=== PATIENT | female | born 1980 | race Caucasian/White ===

== ENCOUNTER 2018-12-01 01:06 | Outpatient (CLI) | payer OTHER, SELFPAY ==
[2018-12-01 12:17] LABS: ALT 37 U/L (12-78); AST 17 U/L (15-37); Alkaline Phosphatase 70 U/L (46-116); Anion Gap 8.7 mmol/L (3-11); BUN 17 mg/dL (7-18); Bilirubin, Total 0.4 mg/dL (0.2-1.0); CO2 30.3 mmol/L (21.0-32.0); CREATININE 0.82 mg/dL (0.55-1.02); Calcium 8.7 mg/dL (8.5-10.1); Chloride 99 mmol/L (98-107); Cholesterol 187 mg/dL (50-200); Glucose 125 mg/dL (70-100); HDL Cholesterol 32 mg/dL (40-60); LDL CHOLESTEROL 130 mg/dL (<100); Potassium 4.2 mmol/L (3.5-5.1); Sodium 138 mmol/L (136-145); TSH (W/Ref FT4) 0.17 uIU/mL (0.358-3.74); Total Protein 7.6 g/dL (6.4-8.2); Triglyceride 104 mg/dL (30-150)
[2018-12-01 12:27] LABS: Hemoglobin A1C 6.1 % (4.5-6.2)
[2018-12-01 12:34] LABS: FREE T4 1.43 ng/dL (0.76-1.46)
[2018-12-01 20:56] LABS: T3,Free 4.4 pg/ml (2.8-5.3)
[2018-12-02 11:29] LABS: Thyroglobulin Antibody 24 U/mL (<61)
[2018-12-02 16:03] LABS: Thyroglobulin Antibody <1.8 IU/mL (<4.0); Thyroglobulin Tumor Marker <0.1 ng/mL
== END 2018-12-01 01:26 ==
PROVIDERS: PCP Family Medicine; Visit Provider Family Medicine
DX: I10 Essential (primary) hypertension (principal); C73 Malignant neoplasm of thyroid gland; E11.9 Type 2 diabetes mellitus without complications; R03.0 Elevated blood-pressure reading, without diagnosis of hypertension; E03.9 Hypothyroidism, unspecified
CPT/HCPCS: 36415; 80053; 80061; 83721; 83036; 84432; 84439; 84443; 84481; 86800

== ENCOUNTER 2019-05-03 01:17 | Outpatient (CLI) | payer OTHER, SELFPAY ==
[2019-05-03 13:02] LABS: ALT 29 U/L (14-59); AST 13 U/L (15-37); Albumin 1.7 g/dL (3.4-5.0); Alkaline Phosphatase 63 U/L (46-116); Anion Gap 7.6 mmol/L (3-11); BUN 9 mg/dL (7-18); Bilirubin, Total 0.3 mg/dL (0.2-1.0); CO2 29.4 mmol/L (21.0-32.0); CREATININE 0.77 mg/dL (0.55-1.02); Calcium 8.2 mg/dL (8.5-10.1); Chloride 101 mmol/L (98-107); Glucose 104 mg/dL (70-100); Potassium 4.3 mmol/L (3.5-5.1); Sodium 138 mmol/L (136-145)
[2019-05-03 13:10] LABS: TSH 0.93 uIU/mL (0.36-3.74)
== END 2019-05-03 01:37 ==
PROVIDERS: Internal Medicine Endocrinology, Diabetes & Metabolism; PCP Family Medicine
DX: I10 Essential (primary) hypertension (principal); C73 Malignant neoplasm of thyroid gland
CPT/HCPCS: 36415; 80053; 84443

== ENCOUNTER 2020-01-12 16:08 | Outpatient (REF) | payer OTHER, SELFPAY | END 2020-01-12 16:28 | LOC: LBN 16:08 | PROVIDERS: PCP Family Medicine; Visit Provider Nurse Practitioner Family | DX: J02.9 Acute pharyngitis, unspecified (principal) | CPT/HCPCS: 87070 ==

== ENCOUNTER 2020-03-20 03:31 | Outpatient (CLI) | payer OTHER, SELFPAY ==
[2020-03-20 13:02] LABS: Hemoglobin A1C 5.6 % (3.8-5.6)
[2020-03-20 13:06] LABS: ALT 28 U/L (14-59); AST 15 U/L (15-37); Albumin 4.1 g/dL (3.4-5.0); Alkaline Phosphatase 56 U/L (46-116); Anion Gap 8.5 mmol/L (3-11); BUN 10 mg/dL (7-18); Bilirubin, Total 0.5 mg/dL (0.2-1.0); CO2 28.5 mmol/L (21.0-32.0); CREATININE 0.77 mg/dL (0.55-1.02); Calcium 8.5 mg/dL (8.5-10.1); Calculated LDL 120 mg/dL (<100); Chloride 99 mmol/L (98-107); Cholesterol 178 mg/dL (<200); Glucose 96 mg/dL (74-106); HDL Cholesterol 39 mg/dL (40-60); Sodium 136 mmol/L (136-145); Total Protein 7.1 g/dL (6.4-8.2); Triglyceride 95 mg/dL (<150)
[2020-03-20 14:29] LABS: FREE T4 1.54 ng/dL (0.76-1.46)
[2020-03-20 23:04] LABS: Thyroglobulin Antibody 26 U/mL (<=60)
[2020-03-21 11:29] LABS: Hepatitis C Ab w Rflx HCV PCR Negative (Negative)
== END 2020-03-20 03:51 ==
PROVIDERS: PCP Family Medicine; Visit Provider Family Medicine
DX: D64.9 Anemia, unspecified (principal); E03.9 Hypothyroidism, unspecified; I10 Essential (primary) hypertension; E11.9 Type 2 diabetes mellitus without complications; C73 Malignant neoplasm of thyroid gland; Z00.00 Encounter for general adult medical examination without abnormal findings
CPT/HCPCS: 36415; 80053; 80061; 86803; 83036; 84439; 84443; 86800

== ENCOUNTER 2020-04-15 00:46 | Outpatient (CLI) | payer OTHER, SELFPAY ==
--- NOTE | 2020-04-15 06:30 | DI.US_ITS ---
EXAM: US PELVIS TRANSVAGINAL CLINICAL HISTORY: ABNL UTERINE BLEEDING, Pelvic pain,N93.9,R10.2 TECHNIQUE: Ultrasound performed using standard protocol. COMPARISON: US OB US 2-3 TRIMESTER TRANSABD*P from 12/01/2013 FINDINGS: Pelvic ultrasound was performed transabdominally and transvaginally. Please see the accompanying chloé a sheet for measurements of the pelvic structures. Uterus is enlarged measuring 10.3 x 5.4 x 6.4 cm. There are multiple apparent uterine fibroids inclu ding a 5 cm in diameter right fundal pedunculated fibroid. The endometrial stripe is about 13 millim eters in thickness with a 9 millimeter vascular solid area internally, endometrial polyp versus mass. Submucosal fibroid not excluded. There is of 5 cm in diameter left ovarian simple cyst. Right ovary unremarkable in appearance. No free fluid identified in the cul-de-sac. IMPRESSION: Multiple uterine fibroids as described above. There is an apparent 9 millimeter in diameter solid endometrial mass versus submucosal fibroid. Scott tional evaluation with hystero sonography or hysteroscopy may be considered. DATA REPOSITORY:
== END 2020-04-15 01:06 ==
PROVIDERS: PCP Family Medicine; Visit Provider Nurse Practitioner Women's Health
DX: D25.9 Leiomyoma of uterus, unspecified (principal); R10.2 Pelvic and perineal pain; N93.9 Abnormal uterine and vaginal bleeding, unspecified
CPT/HCPCS: 76830; 76856

== ENCOUNTER 2020-05-31 02:11 | Outpatient (CLI) | payer OTHER, SELFPAY ==
[2020-05-31 13:43] LABS: HCT 38.4 % (36.0-46.0); HGB 12.9 g/dL (11.2-15.7); MCHC 33.6 % (32.0-36.0); MCV 86.3 fL (80-95); MPV 9.2 fL (8.0-11.0); Platelet Count 265 10^3/uL (130-400); RBC 4.45 10^6/uL (3.93-5.22); RDW 12.9 % (11.7-14.6); RDW-SD 40.3 fL
[2020-05-31 14:06] LABS: HCG Qual (Urine) Negative
== END 2020-05-31 02:31 ==
PROVIDERS: PCP Family Medicine; Visit Provider Obstetrics & Gynecology
DX: N93.9 Abnormal uterine and vaginal bleeding, unspecified (principal); Z01.818 Encounter for other preprocedural examination; Z01.812 Encounter for preprocedural laboratory examination
CPT/HCPCS: 36415; 85027; 86850; 86900; 86901; 81025

== ENCOUNTER 2020-05-31 07:53 | Outpatient (CLI) | payer OTHER, SELFPAY ==
[2020-06-02 10:48] LABS: COVID-19 RT-PCR Result NEGATIVE (Negative)
== END 2020-05-31 08:13 ==
PROVIDERS: PCP Family Medicine; Visit Provider Obstetrics & Gynecology
DX: Z11.59 Encounter for screening for other viral diseases (principal); Z01.818 Encounter for other preprocedural examination
CPT/HCPCS: U0003

== ENCOUNTER 2020-06-05 07:48 | Day surgery (SDC) | payer OTHER, SELFPAY ==
[2020-06-05 08:03] VITALS: BP 125/78; PULSE 86; RESP 18; TEMP 37; O2SAT 95
[2020-06-05] MEDS: Lactated Ringers 1,000 ML 125 ML IV (09:08)
--- NOTE | 2020-06-05 09:58 | ENDO_PTH ---
PATIENT: Nell Kaplan LOC: [facility] U#:[id number] AGE/SX: 39/F ROOM: RE06/05/[address]: Lyric Gilbert DO : 1980 BED: DIS: 06/05/2020 SPEC #: [id number] RECD: 06/05/20 12:36 STATUS: BLESSING REQ #: [id number] AGUSTIN: 06/05/20 09:[address]: Lyric Gilbert DEPT: Surgical Specimen RECD BY: Keena Michelle ENTERED: 06/05/20 12:37 SP TYPE: Endo OTHR DR: Nuria Butts MD, DC Tissues: 1 - ENDOCERVICAL BX/CURRETTE 2 - ENDOMETRIUM BX/CURRETTE Procedures: GROSS AND MICRO LEVEL 4 Comments: [id number]
--- NOTE | 2020-06-05 10:11 | W.PM.OP ---
Date of service: 06/05/20 Time of Service: 10:11 Operative Note Operative Note DATE OF PROCEDURE: 06/05/20 PRE-OP DIAGNOSIS: Abnormal Uterine bleeding POST-OP DIAGNOSIS: same PROCEDURE: Hysteroscopy dilation curettage SURGEON: Lyric Gilbert ANESTHESIA: MAC ESTIMATED BLOOD LOSS: 10 PATHOLOGY: other (1. Endocervical curettage 2. Endometrial curettage) COMPLICATIONS: None Patient was transported to: PACU Patient's condition: stable Indications: Ongoing abnormal uterine bleeding Findings: Enlarged uterus, sounded to 10 cm, significantly kash-flexed, normal endometrium Procedure Description: Patient is a 30-year-old female with known abnormal uterine bleeding. Previous pelvic ultrasound showed thickened endometrium. Taking the operating suite with an IV running where she is placed in dorsal supine position. Anesthesia administered via monitored anesthesia care. She is then placed in the modified dorsal lithotomy position in stirrups and prepped and draped in usual sterile fashion. Exam under anesthesia revealed a uterus that was somewhat bulky approximately 10 weeks size and anteroverted. At this point, speculum was placed into the vaginal vault. Single-tooth tenaculum used to grasp the anterior lip of the cervix. Cervical loss dilated to the point that a 5 mm hysteroscope could be passed with ease. With instillation of normal saline the endometrial cavity was inspected and found to be relatively smooth and regular. Endocervical and subsequent endometrial curettage was performed with scant tissue from each. This completed the procedure. Hysteroscope had been removed. Single-tooth tenaculum was removed from the anterior lip of the cervix. Tenaculum sites were hemostatic. Patient was returned to the dorsal supine position and awoke from anesthesia with ease. She was taken recovery room in stable condition.
[2020-06-05] MEDS: HYDROcodone 5/Acetaminophen 325 TAB PO (10:35)
[2020-06-05 10:45] VITALS: BP 129/66; PULSE 67; RESP 16; TEMP 36.2; O2SAT 100
== END 2020-06-05 11:10 | disposition home or self-care (01) ==
PROVIDERS: PCP Family Medicine; Visit Provider Obstetrics & Gynecology
PROC: 0UDB8ZZ Extraction of Endometrium, Via Natural or Artificial Opening Endoscopic (ICD-10-PCS; CPT 58558; principal; 2020-06-05 09:15)
DX: N93.8 Other specified abnormal uterine and vaginal bleeding (principal); I10 Essential (primary) hypertension
CPT/HCPCS: 58558; 81025; 88305; J0131; J1100; J1885; J2001; J2250; J2405

== ENCOUNTER 2020-11-06 17:00 | Outpatient (REF) | payer OTHER, SELFPAY ==
[2020-11-06 22:06] LABS: TSH (W/Ref FT4) 4.24 uIU/mL (0.36-3.74)
[2020-11-06 22:26] LABS: FREE T4 1.34 ng/dL (0.76-1.46)
== END 2020-11-06 17:01 | disposition home or self-care (01) ==
LOC: LBN 17:00
PROVIDERS: PCP Family Medicine; Visit Provider Family Medicine
DX: E03.9 Hypothyroidism, unspecified (principal)
CPT/HCPCS: 84439; 84443

== ENCOUNTER 2021-04-25 03:50 | Outpatient (CLI) | payer OTHER, SELFPAY ==
--- NOTE | 2021-04-25 14:26 | DI.MAMMO_ITS ---
Exam(s) MAMMO SCREENING EXAM: MAMMO SCREENING CLINICAL HISTORY: screening,BASELINE, Z12.39 TECHNIQUE: Mammograms were interpreted according to the usual protocol including computer analysis w [facility] CAD system, tomosynthesis and C-view imaging. COMPARISON: FINDINGS: Patient reportedly has a of left breast reduction and right breast reconstruction. There are asymmet mejia densities projected far posteriorly in the right breast laterally on the CC view, these may be re lated to prior surgical procedure. No prior films available for comparison. Additional evaluation w [facility] ultrasound requested to exclude mass in this area. No other areas of asymmetric density or mass identified. No clumped microcalcification of either breast. IMPRESSION: Right breast contains areas of asymmetric density with a vaguely masslike appearance posterolateral ly, these may be related to prior surgery but the possibility of a mass is not entirely excluded. Co rrelation with right breast ultrasound recommended. BI-RADS Category 0 - Assessment Incomplete: Need additional imaging evaluation Breast Density - Category B - Scattered areas of fibroglandular density
== END 2021-04-25 04:10 ==
PROVIDERS: PCP Family Medicine; Visit Provider Family Medicine
DX: Z12.31 Encounter for screening mammogram for malignant neoplasm of breast (principal); R92.8 Other abnormal and inconclusive findings on diagnostic imaging of breast
CPT/HCPCS: 77063; 77067

== ENCOUNTER 2021-05-08 09:26 | Outpatient (CLI) | payer OTHER, SELFPAY ==
[2021-05-08 13:03] LABS: ALT 26 U/L (14-59); AST 14 U/L (15-37); Albumin 4.5 g/dL (3.4-5.0); Alkaline Phosphatase 64 U/L (46-116); Anion Gap 12.6 mmol/L (3-11); BUN 12 mg/dL (7-18); Bilirubin, Total 0.3 mg/dL (0.2-1.0); CO2 26.4 mmol/L (21.0-32.0); CREATININE 0.9 mg/dL (0.55-1.02); Calcium 8.6 mg/dL (8.5-10.1); Chloride 102 mmol/L (98-107); Glucose 119 mg/dL (74-106); Potassium 4.3 mmol/L (3.5-5.1); Sodium 141 mmol/L (136-145); TSH (W/Ref FT4) 2.96 uIU/mL (0.36-3.74)
[2021-05-08 22:38] LABS: Thyroglobulin Antibody <15 U/mL (<=60)
== END 2021-05-08 09:27 | disposition home or self-care (01) ==
LOC: LOS 09:26
PROVIDERS: PCP Family Medicine; Referring Provider Family Medicine; Visit Provider Family Medicine
DX: E03.9 Hypothyroidism, unspecified; Z00.00 Encounter for general adult medical examination without abnormal findings; C73 Malignant neoplasm of thyroid gland
CPT/HCPCS: 36415; 80053; 84443; 86800

== ENCOUNTER 2021-08-07 23:07 | Outpatient (REF) | payer OTHER, SELFPAY ==
[2021-08-08 21:14] LABS: COVID-19 RT-PCR UVMMC Result Negative (Negative)
== END 2021-08-07 23:08 | disposition home or self-care (01) ==
LOC: LBN 23:07
PROVIDERS: PCP Family Medicine; Visit Provider Nurse Practitioner Family
DX: Z20.822 Contact with and (suspected) exposure to COVID-19 (principal)
CPT/HCPCS: U0003

== ENCOUNTER 2022-05-06 01:45 | Outpatient (CLI) | payer OTHER, SELFPAY ==
[2022-05-06 13:11] LABS: Anion Gap 7.2 mmol/L (3-11); BUN 11 mg/dL (7-18); CO2 30.8 mmol/L (21.0-32.0); CREATININE 0.8 mg/dL (0.55-1.02); Chloride 98 mmol/L (98-107); Estimated GFR 94.87 (mL/min/1.73m2); FREE T4 1.42 ng/dL (0.76-1.46); Glucose 117 mg/dL (74-106); Potassium 3.3 mmol/L (3.5-5.1); Sodium 136 mmol/L (136-145); TSH 2.72 uIU/mL (0.36-3.74)
[2022-05-07 11:42] LABS: Thyroglobulin Antibody <1.8 IU/mL (<1.8); Thyroglobulin Tumor Marker <0.1 ng/mL
== END 2022-05-06 01:46 | disposition home or self-care (01) ==
LOC: LOS 01:47
PROVIDERS: PCP Nurse Practitioner Family; Visit Provider Nurse Practitioner Family
DX: E03.9 Hypothyroidism, unspecified (principal); C73 Malignant neoplasm of thyroid gland
CPT/HCPCS: 36415; 80048; 84432; 84439; 84443; 86800

== ENCOUNTER 2022-05-19 12:41 | Outpatient (REF) | payer OTHER, SELFPAY ==
--- NOTE | 2022-05-19 10:00 | ENDOMET_PTH ---
PATIENT: Nell Kaplan LOC: [facility] U#:[id number] AGE/SX: 41/F ROOM: RE05/19/[address]: Lyric Gilbert DO : 1980 BED: DIS: 05/19/2022 SPEC #: [id number] RECD: 05/19/22 12:46 STATUS: BLESSING REQ #: [id number] AGUSTIN: 05/19/22 10:[address]: Lyric Gilbert DEPT: Surgical Specimen RECD BY: Keena Michelle ENTERED: 05/19/22 12:47 SP TYPE: Endomet OTHR DR: CINTHIA Trinh Tissues: 1 - ENDOMETRIUM BX/OMEGA Procedures: GROSS AND MICRO LEVEL 4 Comments: [id number]
== END 2022-05-19 12:42 | disposition home or self-care (01) ==
LOC: LBN 12:41
PROVIDERS: PCP Nurse Practitioner Family; Visit Provider Obstetrics & Gynecology
DX: N93.9 Abnormal uterine and vaginal bleeding, unspecified (principal)
CPT/HCPCS: 88305

== ENCOUNTER 2022-08-05 07:32 | Outpatient (CLI) | payer OTHER, SELFPAY ==
[2022-08-05 12:38] LABS: Anion Gap 8.4 mmol/L (3-11); BUN 12 mg/dL (7-18); CO2 28.6 mmol/L (21.0-32.0); CREATININE 0.8 mg/dL (0.55-1.02); Calcium 8.3 mg/dL (8.5-10.1); Chloride 99 mmol/L (98-107); Estimated GFR 94.87 (mL/min/1.73m2); Glucose 142 mg/dL (74-106); Potassium 3.8 mmol/L (3.5-5.1); Sodium 136 mmol/L (136-145); TSH 0.22 uIU/mL (0.36-3.74)
== END 2022-08-05 07:33 | disposition home or self-care (01) ==
LOC: LOS 07:32
PROVIDERS: PCP Nurse Practitioner Family; Referring Provider Nurse Practitioner Family; Visit Provider Nurse Practitioner Family
DX: I10 Essential (primary) hypertension; Z85.850 Personal history of malignant neoplasm of thyroid
CPT/HCPCS: 36415; 80048; 84439; 84443

== ENCOUNTER 2023-01-12 02:36 | Outpatient (CLI) | payer OTHER, SELFPAY ==
[2023-01-12 13:42] LABS: Abs Immature Grans 0.04 10^3/uL (0.0-0.06); Absolute Basophil Count 0.03 10^3/uL (0.0-0.2); Absolute Eosinophil Count 0.15 10^3/uL (0.0-0.7); Absolute Lymphocyte Count 2.22 10^3/uL (1.2-3.4); Absolute Monocyte Count 0.62 10^3/uL (0.1-0.8); Absolute Neutrophil Count 6.24 10^3/uL (1.2-6.7); Basophils % 0.3; Eosinophils % 1.6; HCT 36.5 % (36.0-46.0); HGB 11.6 g/dL (11.2-15.7); Immature Grans % 0.4; Lymphocytes % 23.9; MCH 24.8 pg (27.0-33.0); MCHC 31.8 % (32.0-36.0); MCV 78 fL (80-95); MPV 8.8 fL (8.0-11.0); Monocytes % 6.7; Neutrophils % 67.1; Platelet Count 304 10^3/uL (130-400); RBC 4.67 10^6/uL (3.93-5.22); RDW 14.4 % (11.7-14.6); RDW-SD 40.7 fL
[2023-01-12 14:32] LABS: Anion Gap 8.6 mmol/L (3-11); BUN 10 mg/dL (7-18); CO2 27.4 mmol/L (21.0-32.0); CREATININE 0.8 mg/dL (0.55-1.02); Calcium 8.7 mg/dL (8.5-10.1); Chloride 100 mmol/L (98-107); Estimated GFR 94.28 (mL/min/1.73m2); FREE T4 1.37 ng/dL (0.76-1.46); Glucose 104 mg/dL (74-106); Potassium 3.6 mmol/L (3.5-5.1); Sodium 136 mmol/L (136-145); TSH 0.24 uIU/mL (0.36-3.74)
[2023-01-12 14:34] LABS: Hemoglobin A1C 5.9 % (<5.7)
[2023-01-12 15:23] LABS: Vitamin D 25 Total 30.7 ng/mL (30-100)
[2023-01-13 20:39] LABS: Parathyroid Hormone,Intact 27 pg/mL (19-88)
== END 2023-01-12 02:37 | disposition home or self-care (01) ==
LOC: LBO 02:36
PROVIDERS: PCP Nurse Practitioner Family; Visit Provider Obstetrics & Gynecology
DX: N93.8 Other specified abnormal uterine and vaginal bleeding (principal); D25.9 Leiomyoma of uterus, unspecified; I10 Essential (primary) hypertension; E11.9 Type 2 diabetes mellitus without complications; Z85.850 Personal history of malignant neoplasm of thyroid; Z01.818 Encounter for other preprocedural examination; Z01.812 Encounter for preprocedural laboratory examination
CPT/HCPCS: 36415; 80048; 82306; 86850; 86900; 86901; 83036; 83970; 84439; 84443; 85025

== ENCOUNTER 2023-01-12 14:31 | Outpatient (REF) | payer OTHER, SELFPAY ==
[2023-01-12 14:42] LABS: Source Nasal/Nares
[2023-01-12 17:14] LABS: COVID-19 PCR Negative (Negative)
== END 2023-01-12 14:32 | disposition home or self-care (01) ==
LOC: LBN 14:31
PROVIDERS: PCP Nurse Practitioner Family; Visit Provider Obstetrics & Gynecology
DX: Z20.822 Contact with and (suspected) exposure to COVID-19 (principal); Z01.818 Encounter for other preprocedural examination; Z01.812 Encounter for preprocedural laboratory examination
CPT/HCPCS: 87635

== ENCOUNTER 2023-01-13 06:59 | Inpatient (IN) | payer OTHER, SELFPAY ==
[2023-01-13] VITALS (18 sets, daily range): BP systolic 94–143; BP diastolic 48–83; PULSE 74–94; RESP 14–20; TEMP 36–37.2; O2SAT 88–100; BMI 40.6
[2023-01-13] MEDS: Lactated Ringers 1,000 ML 125 ML IV ×3 (08:32→16:30)
--- NOTE | 2023-01-13 08:38 | W.ANESVAS ---
Midline Placement Date Performed: 01/13/23 Procedure Time: 07:55 Requesting Provider: Jonas Patel Procedure Location: Day Surgery Unit Sedation Given (Indicate Dose Given): No Sedation given Patient Mental Status: Awake Sterility: Hand Hygiene, Surgical Cap, Surgical Mask, Sterile Gloves, Sterile Drape/Sheet and Chlorhexidine Laterality: Right Insertion Site: Basilic Midline Device: PowerGlide Pro 18G Catheter Length: 10 cm Midline Procedure Procedure: 1% Lidocaine to skin and subcutaneous tissue with 25g needle and Catheter placed without resistance Dressing: Tegaderm Applied and Statlock Applied Blood Return: Present Flushes: Easily Ultrasound: Sterile probe cover and gel used Ultrasound Image Saved?: Yes Number of Attempts (See previous attempts in note section): 1 Procedure Tolerated: No Complications Procedure Outcome: Successful Procedure Comment:: requested to place PIV for surgery from dsu rn. pt states previous 7+ pokes in the past stating that they would get in and they would blow and not be able to advance. Has great appearing hand veins, but given history, midline placed without difficulty. Performed By: Jonas Patel
--- NOTE | 2023-01-13 09:37 | W.ANESPRE ---
General Info Date of Service Date Performed: 01/13/23 Height: 5 ft 5 in Weight: 110.7 kg Body Mass Index (BMI): 40.6 Surgical Procedure: Operation Date: 01/13/23 09:25 Proposed Procedure Side Surgeon p Hysterectomy Vaginal Laparoscopic Assist/Bi-Lat Salpingectomy/Cysto, Possible [place]AR[place] Lyric Gilbert DO Pre-Op Diagnosis Post-Op Diagnosis Abnormal uterine bleeding Meds Allergies and Home Medications Allergies Allergy/AdvReac Type Severity Reaction Status Date / Time No Known Allergies Allergy Verified 01/12/23 14:01 Home Medication Medication Instructions Recorded losartan 50 mg tablet 75 mg PO DAILY #135 tabs 06/11/22 phentermine 37.5 mg capsule 37.5 mg PO DAILY #90 caps 09/09/22 levothyroxine 137 mcg tablet 137 mcg PO DAILY #90 tabs 11/24/22 levothyroxine 88 mcg tablet 44 mcg PO DAILY #45 tabs 11/24/22 furosemide 20 mg tablet 20 mg PO DAILY #90 tabs 12/28/22 metformin 1,000 mg tablet 500 mg PO DAILY 12/28/22 Current Visit Medications: Current Medications Generic Name Dose Route Start Last Admin Trade Name Freq PRN Reason Stop Dose Admin Ringer's Solution 1,000 mls @ 125 mls/hr 01/13/23 06:00 01/13/23 08:32 IV 02/11/23 23:59 125 mls/hr INFUSION EUGENIO Administration Cefazolin Sodium/Dextrose 2 gm in 50 mls @ 100 mls/hr 01/13/23 06:00 Ancef Duplex IVPB 02/11/23 23:59 PREOP EUGENIO IV Miscellaneous Supplies 1 each 01/13/23 06:00 Iv Access IV 02/11/23 23:59 DIRECTED EUGENIO Sodium Chloride 0 ml 01/13/23 06:00 Normal Saline Flush 10 Ml Syr IV 02/11/23 23:59 PRN PRN Sodium Chloride 0 ml 01/13/23 06:00 Normal Saline 10 Ml Vial IJ 02/11/23 23:59 DIRECTED PRN Sterile Water 0 ml 01/13/23 06:00 Water,Injection,Sterile 10 Ml Vial IJ 02/11/23 23:59 DIRECTED PRN PFSH Active Problems Active Problems: Problem Status Onset Code Difficult intravenous access Z78.9 Type 2 diabetes mellitus E11.9 History of thyroid cancer ~2013 Z85.850 Essential hypertension I10 Abnormal uterine bleeding N93.9 Hyperlipidemia E78.5 Major depressive disorder F32.9 Thickened endometrium R93.89 Obesity E66.9 Carpal tunnel syndrome, bilateral G56.03 Medical History Medical History COVID-19 (~09/17/21) Papillary thyroid carcinoma (~2013) S/p thyroidectomy, parathyroidectomy Prediabetes Surgical History Surgical History H/O total thyroidectomy (~2013) With parathyroidectomy as well S/P breast augmentation Status post section (12/11/13) Tobacco Smoking/Tobacco Use Status: Never Passive smoking exposure: Yes Second hand exposure: Yes Alcohol Alcohol Intake: current Alcohol intake frequency: a few times a month Alcohol type: beer and wine Substance Use Substance use: Rarely Substance use type: marijuana Prental History History 1 Para 1 Hx # Term Pregnancies Multiple births Hx # Pregnancies Ectopic pregnancies AB induced Hx Number of Living Children AB spontaneous Vital Signs and Lab Results Vital Signs Most Recent Vital Signs in EMR: Most Recent Vital Signs Temp Pulse Resp BP Pulse Ox 36.7 C 94 H 18 143/83 H 100 01/13/23 07:05 01/13/23 07:05 01/13/23 07:05 01/13/23 07:05 01/13/23 07:05 Point of Care Results Point of Care Results: POC- Test(urine) Negative 01/13/23 07:36 Finger Stick Blood Glucose 147 01/13/23 07:30 Lab Results Blood Type / Crossmatch: Patient ABO/Rh O Positive 01/12/23 Antibody Screen NEGATIVE 01/12/23 Complete Blood Count: White Blood Count 9.30 10^3/uL (4.4-10.8) 01/12/23 13:35 Red Blood Count 4.67 10^6/uL (3.93-5.22) 01/12/23 13:35 Hemoglobin 11.6 g/dL (11.2-15.7) 01/12/23 13:35 Hematocrit 36.5 % (36.0-46.0) 01/12/23 13:35 Platelet Count 304 10^3/uL (130-400) 01/12/23 13:35 Complete Metabolic Panel: Sodium 136 mmol/L (136-145) 01/12/23 13:35 Potassium 3.6 mmol/L (3.5-5.1) 01/12/23 13:35 Chloride 100 mmol/L (98-107) 01/12/23 13:35 Carbon Dioxide 27.4 mmol/L (21.0-32.0) 01/12/23 13:35 BUN 10 mg/dL (7-18) 01/12/23 13:35 Creatinine 0.8 mg/dL (0.55-1.02) 01/12/23 13:35 Est GFR (CKD-EPI 2020) 94.28 (mL/min/1.73m2) 01/12/23 13:35 Calcium 8.7 mg/dL (8.5-10.1) 01/12/23 13:35 Glucose 104 mg/dL (74-106) 01/12/23 13:35 Hemoglobin A1c 5.9 % (<5.7) H 01/12/23 13:35 Liver Function Panel: No Data to Display Coagulation Panel: No Data to Display Cardiac Panel: No Data to Display Arterial Blood Gas: No Data to Display Venous Blood Gas: No Data to Display Pancreas Panel: No Data to Display Thyroid Panel: Thyroid Stimulating Hormone (TSH) 0.24 uIU/mL (0.36-3.74) L 01/12/23 13:35 Infectious Disease: Coronavirus (COVID-19)(PCR) Negative (Negative) 01/12/23 14:00 Coronavirus 2019 Source Nasal/Nares 01/12/23 14:00 Blood Cultures: No Data to Display Toxicology Panel: No Data to Display Panel: No Data to Display Anesthesia Assessment and Plan Anesthesia History Personal History: No History of Anesthesia Complications Family History: No Family History of Anesthesia Complications Exercise Tolerance Exercise Tolerance: Metabolic Equivalents>4 Pertinent Negatives Pertinent Negatives: No Symptoms of GERD Cardiac & Pulmonary Exam Cardiac Exam: Normal S1/S2 Heart Sounds Pulmonary Exam: Clear Bilateral Breath Sounds Implantable Cardiac Device Does patient have a Pacemaker or an ICD?: No Airway Exam Known Difficult Airway: No Mallampati Class: 2 Mouth Opening: Normal (> 3cm) Thyromental Distance: Greater than 3 cm Neck Range of Motion: Full ROM Neck Circumference: Normal Teeth Condition: Normal Dentition ASA Classification ASA Score: ASA 2 Emergency Case?: No NPO Status NPO Status: NPO Clears >2 hours, Solids >8 hours Status Status: Negative HCG Anesthesia Plan Resuscitation Status: Full Code Anesthesia Technique: General Anesthesia Airway Planned: Endotracheal Tube Monitors Used: Standard Monitors
[2023-01-13] MEDS: ceFAZolin 2 GM/50 ML BAG IVPB (10:16)
[2023-01-13] MEDS: Bupivacaine 0.5% Pres-Free 30 ML VIAL (10:55)
--- NOTE | 2023-01-13 13:04 | UTER_PTH ---
PATIENT: Nell Kaplan LOC: U#:[id number] AGE/SX: 42/F ROOM: RE01/13/[address]: Lyric Gilbert DO : 1980 BED: A DIS: 01/14/2023 SPEC #: [id number] RECD: 01/13/23 17:11 STATUS: SOUT REQ #: [id number] AGUSTIN: 01/13/23 13:[address]: Lyric Gilbert DEPT: Surgical Specimen RECD BY: Keena Michelle ENTERED: 01/13/23 17:12 SP TYPE: UTER OTHR DR: CINTHIA Trinh Tissues: 1 - UTERUS W OR W/O OVARIES(NOT TUMOR/PROLAPSE) Procedures: GROSS AND MICRO LEVEL 5 Comments: [id number]
--- NOTE | 2023-01-13 14:07 | W.PM.OP ---
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 Follicular cyst of the right ovary. 5 cm fibroid incorporated into the right round ligament versus uterine didelphys. Normal-appearing left ovary. Bulky fibroid uterus with multiple small intramural fibroids. Procedure Description: After full informed consent was obtained, patient was taken the operating suite with an IV running. She was placed in the supine position and endotracheal intubation performed for the administration of general anesthesia with ease. She received 2 g of Ancef IV for surgical site prophylaxis. She had pneumatic compression stockings for DVT prophylaxis. She had a Laguerre catheter inserted for continuous bladder drainage. She was then placed in the modified dorsal lithotomy position in [facility] and prepped and draped in the usual sterile fashion. Exam under anesthesia was somewhat limited due to body habitus, however uterus appeared bulky in approximately 10 weeks size. At this point a speculum was inserted into the vaginal vault and the cervix identified. A [employer] uterine manipulator was placed for uterine manipulation throughout the procedure. Speculum was removed and attention was turned to the abdomen. At this point quarter percent Marcaine was used to infiltrate at the umbilical site. A vertical skin incision was made, 1 cm. Sharp towel clips were used to elevate the anterior abdominal wall and a varies needle was inserted. Pneumoperitoneum was created with a maximum pressure of 15 mmHg. At this point a bladeless 12 mm port was placed under direct visualization. There was no evidence of intra-abdominal or pelvic trauma. At this point a second and third right and left lower quadrant trocar sites were placed after infiltration of Marcaine. These ports were placed, 5 mm, under direct visualization. With the patient in Trendelenburg, there was noted to be adhesions of the omentum to a 1 cm fundal uterine fibroid. With meticulous cautery dissection the omentum was removed from this area. On inspection of the abdomen pelvis, both ovaries appeared somewhat atrophic though a small follicular cyst noted on the right ovary. Fallopian tubes were torturous and in the right broad ligament there was a large fibroid versus uterine didelphys. The right fallopian tube was then elevated and cautery transected and removed from the abdomen. A similar procedure was carried out on the left fallopian tube. At this point the right utero-ovarian ligament was identified and cautery transected. The area of the right broad ligament was then cauterized and transected. A similar procedure was carried out on the left utero-ovarian ligament followed by the left broad ligament. There were noted to be some moderate adhesions of the bladder to the anterior lower uterine segment. Once the broad ligament was opened meticulous sharp dissection was used to create a bladder flap. Due to some fairly dense adhesions, the bladder was filled with sterile formula to assure and delineate the bladder structure itself. With the bladder full with 180 mL of sterile fluid the remainder of the bladder adhesions were sharply dissected away from the lower uterine segment. At this point, attention was turned to the left uterine pedicle which was cauterized. Right uterine pedicles were also been cauterized. Deep within the pelvis was noted to be the ureters running well far away from the surgical field. At this point attention was turned to the vaginal vault after pneumoperitoneum released. A weighted speculum was placed into the posterior vaginal vault and Chilo clamps used to grasp the anterior and posterior lips of the cervix. With Bovie cautery and meticulous attention to the cervical vaginal interface a circumferential incision was made. The posterior cul-de-sac was then opened sharply and the right and left uterosacral cardinal complex ligaments were identified clamped and suture-ligated. With meticulous sharp dissection at the anterior cul-de-sac the anterior cul-de-sac was entered. In a systematic fashion the right and left uterine pedicles were clamped transected and ligated. This allowed delivery of the uterus, fibroid versus didelphys, and cervix through the vaginal vault. There were 2 areas that were not hemostatic which were oversewn with single sutures of 0 Vicryl in a [id number] fashion. The vaginal cuff was then closed using 0 Vicryl suture in a running locked fashion and noted to be hemostatic. Attention was then returned to the abdomen where pneumoperitoneum recreated and all pedicles inspected and noted to be hemostatic. The abdomen was irrigated with copious amounts of normal saline and under low pressure again all pedicles were inspected and noted to be hemostatic. This portion of the procedure was then terminated. Pneumoperitoneum released and all instruments removed. The fascial incision at the umbilicus was closed with a simple interrupted stitch of 0 Vicryl suture under direct visualization. Skin edge was reapproximated with 4-0 undyed Monocryl and Steri-Strips and sterile dressings were placed. Patient received indigo carmine intravenously and cystoscopy was performed. There was no evidence of trauma to the bladder, no sutures within the bladder. Both ureteric orifice ease were visualized and jetting blue-tinged urine. At this point cystoscopy was also terminated and a Laguerre catheter reinserted. Patient returned to the dorsal supine position and awoke from anesthesia with ease. She was taken the recovery room in stable condition with a Laguerre catheter in place draining blue-tinged urine. Findings: As above Complications: None apparent Fluids: Crystalloid per anesthesia EBL: 400 mL Pathology: Bilateral fallopian tubes, uterus, fibroids, cervix for examination.
[2023-01-13] MEDS: fentaNYL 100 MCG/2 ML VIAL IVP (14:44)
--- NOTE | 2023-01-13 15:38 | W.ANESPOSTOP ---
Postoperative Evaluation Date, Time and Location Date Performed: 01/13/23 Time Performed: 15:38 Patient Location: PACU Vital Signs Most Recent Imported Vital Signs: Most Recent Vital Signs Temp Pulse Resp BP Pulse Ox 36.4 C L 88 14 112/55 L 97 01/13/23 14:45 01/13/23 15:00 01/13/23 15:00 01/13/23 15:00 01/13/23 15:00 Pain Score Most Recent Pain Score: Most Recent Pain Score Pain Level 4 01/13/23 15:00 Assessment Mental Status: Awake (Alert & Oriented to Patient Baseline) Airway and Respiratory Function: Patent airway with normal (patient baseline) respiratory exam Cardiovascular Function: Hemodynamically Stable Hydration Status: Adequately Hydrated Nausea & Vomiting: No Nausea or Vomiting Pain: Pt. Denies Any Pain Peripheral Nerve Block: Patient did not receive a nerve block
[2023-01-13] MEDS: Acetaminophen 500 MG TAB PO (15:41)
[2023-01-13] MEDS: oxyCODONE 5 mg/Acetaminophen 325 mg TAB PO (18:30)
[2023-01-13] MEDS: Docusate Sodium 100 MG CAP PO (19:21)
[2023-01-13] MEDS: Ketorolac 15 MG/ML VIAL IVP (19:21)
[2023-01-14] MEDS: oxyCODONE 5 mg/Acetaminophen 325 mg TAB PO (00:13)
[2023-01-14 00:27] VITALS: BP 118/67; PULSE 92; RESP 18; TEMP 37.2; O2SAT 96
[2023-01-14] MEDS: Ketorolac 15 MG/ML VIAL IVP ×2 (01:01→07:46)
[2023-01-14] MEDS: Levothyroxine 88 MCG TAB 44 MCG PO (05:48)
[2023-01-14 06:30] LABS: HCT 27.9 % (36.0-46.0); MCH 25.2 pg (27.0-33.0); MCHC 32.3 % (32.0-36.0); MCV 78 fL (80-95); MPV 8.9 fL (8.0-11.0); Platelet Count 233 10^3/uL (130-400); RBC 3.57 10^6/uL (3.93-5.22); RDW 14.6 % (11.7-14.6); RDW-SD 41.7 fL; WBC 11.92 10^3/uL (4.4-10.8)
[2023-01-14] MEDS: Losartan 50 MG TAB 75 MG PO (07:46)
[2023-01-14] MEDS: Furosemide 20 MG TAB PO (07:46)
[2023-01-14] MEDS: Docusate Sodium 100 MG CAP PO (07:46)
[2023-01-14] MEDS: Normal Saline Flush 10 ML SYR IV (07:47)
[2023-01-14 07:55] VITALS: BP 117/71; PULSE 72; RESP 16; TEMP 37.2; O2SAT 97
--- NOTE | 2023-01-14 08:13 | W.PM.PROGNOT ---
Date of Service Date of service: 01/14/23 Time of Service: 08:14 Assessment and Plan Assessment and plan (1) Status post laparoscopic assisted vaginal hysterectomy: Status: Acute Assessment and plan: Postoperative day #1 status post laparoscopically assisted vaginal hysterectomy with bilateral salpingectomy. Doing well. Vitals are stable. Discharge home today. All instructions were given. Subjective Subjective Interval history since last seen: Patient seen and examined this morning. Doing well. Pain is well controlled. She has been ambulatory. Laguerre catheter is out. Vital signs are stable. Hemoglobin with the appropriate drop. No concern for ongoing bleeding at this point. All of her questions were answered. Exam Narrative Exam Narrative: Alert and oriented Const General: cooperative, healthy appearing and no acute distress Eyes General: appearance normal, both eyes and all related structures Neck Neck: normal visual inspection and supple Resp Effort & Inspection: normal respiratory effort Auscultation: clear to auscultation bilaterally and no wheezes GI Inspection: normal to inspection, no abdominal wall ecchymosis, non-distended and incision (Dressed) Palpation: soft, not firm and no guarding Skin General skin exam: no rashes or lesions noted Neuro General: patient alert and patient oriented x3 Extrem General: normal to inspection, no clubbing, cyanosis or edema, no pedal edema and no calf tenderness Objective Last Vital Signs Temp 98.9 F 01/14/23 07:55 Pulse 72 01/14/23 07:55 Resp 16 01/14/23 07:55 BP 117/71 01/14/23 07:55 Pulse Ox 97 01/14/23 07:55 Laboratory Results - last 24 hr 01/14/23 06:00 WBC 11.92 H RBC 3.57 L Hgb 9.0 L D Hct 27.9 L MCV 78 L MCH 25.2 L MCHC 32.3 RDW 14.6 Plt Count 233 MPV 8.9 Time Spent with Patient Time Spent with Patient: <25 minutes Time was spent: preparing to see the patient(eg.review tests), obtaining and/or reviewing separately otained hiistory, ordering medications,tests, procedures, indepentently interpreting results, counseling the patient and care coordination
--- NOTE | 2023-01-14 08:20 | W.PM.DS.N ---
Date of service: 01/14/23 Time of Service: 08:20 DS: Diagnosis Discharge Diagnosis (1) Status post laparoscopic assisted vaginal hysterectomy: Status: Acute Asessment and Plan: Postoperative day 1 status post laparoscopically assisted vaginal hysterectomy with bilateral salpingectomy. DC home today. Follow-up in 2 and 6 weeks. Pathology is pending. Prescription sent to the pharmacy including Motrin, Colace, Percocet. Instructions were reviewed including pelvic rest and no heavy lifting for 6 weeks. No driving for 1 to 2 weeks post operative Discharge Plan Disposition Patient Disposition: Home Condition: Improving Discharge Details Reason For Visit: [facility] Admit Date/Time: 01/13/23 06:59 Admit Provider: Lyric Gilbert Attending Provider: Lyric Gilbert Primary Care Provider: Saloni Nelson Hospital Course Hospital Course: Patient underwent an uncomplicated laparoscopically assisted vaginal hysterectomy with bilateral salpingectomy. She had an uncomplicated postoperative course and was discharged home postoperative day #1 ambulating, tolerating regular diet with oral pain medication and stable vital signs. She will be seen in the office in 2 and 6 weeks. Prescription sent to the pharmacy. Pathology is pending at this point Home Meds and New Rx's Prescriptions: New ibuprofen 800 mg tablet 800 mg PO Q8H Qty: 60 0RF oxycodone-acetaminophen [Percocet] 5-325 mg tablet 1 tab PO Q8H PRNQty: 10 0RF docusate sodium [Colace] 100 mg capsule 100 mg PO BID Qty: 30 0RF Continued phentermine 37.5 mg capsule 37.5 mg PO DAILY Qty: 90 3RF furosemide 20 mg tablet 20 mg PO DAILY Qty: 90 3RF losartan 50 mg tablet 75 mg PO DAILY Qty: 135 3RF levothyroxine 137 mcg tablet 137 mcg PO DAILY Qty: 90 0RF levothyroxine 88 mcg tablet 44 mcg PO DAILY Qty: 45 0RF Rx Instructions: Take half a tablet daily in addition to the 137mcg tablet Discharge Instructions Stand 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 SurgeryW/Incision Activity:: Activity as Tolerated Equipment/Supplies:: No Equipment Needed Diet:: As Tolerated Discharge Orders Discharge Orders: Discharge Order (Routine); Ordered 01/14/23 Ordered By: Lyric Gilbert DS: Summary Time Spent with Patient providing and/or coordinating discharge services: Less than 30 minutes Status at Discharge Functional status at discharge: independent ambulation Overall status at discharge: patient is progressing back to baseline Mental Status: mental status grossly normal Speech and Movement: speech and movement normal Mood: congruent mood Affect: normal affect Exam Narrative Exam Narrative: See physical exam from progress note dated 01/14/2023 Psych Mental Status: mental status grossly normal Speech and Movement: speech and movement normal Mood: congruent mood Affect: normal affect DS: Data Vitals/I&O Vitals and I&O: Vital Signs Temperature 98.9 F 01/14/23 07:55 Temperature Source Tympanic 01/14/23 07:55 Pulse 72 01/14/23 07:55 Pulse Rhythm Regular 01/13/23 07:05 Respiratory Rate 16 01/14/23 07:55 Respiratory Effort Normal 01/14/23 00:25 Respiratory Depth Normal 01/14/23 00:25 Respiratory Pattern Normal 01/14/23 00:25 Blood Pressure 117/71 01/14/23 07:55 Pulse Oximetry 97 01/14/23 07:55 Respiratory End-tidal CO2 36 01/13/23 14:45 Oxygen Delivery Method Room Air 01/14/23 07:55 Oxygen Flow Rate 0 01/14/23 07:55 Pain Level 5 01/14/23 07:55 Intake & Output 01/13/23 01/13/23 01/14/23 11:59 23:59 11:59 Intake Total 50 / 1820 1770 / 1820 450 / 450 Output Total 920 / 920 1000 / 1000 Balance 50 / 900 850 / 900 -550 / -550 Weight 244 lb 0.827 oz Intake: IV 50 / 1600 1550 / 1600 450 / 450 Oral 220 / 220 Output: Urine 920 / 920 1000 / 1000 Other: Urine Color Yellow Green Yellow Urine Appearance Clear Clear Clear Comment urine was very blue Emesis Description None Data Completed and Pending Labs on day of discharge: Labs from last 24 hours 01/14/23 06:00 WBC 11.92 H RBC 3.57 L Hgb 9.0 L D Hct 27.9 L MCV 78 L MCH 25.2 L MCHC 32.3 RDW 14.6 Plt Count 233 MPV 8.9 PFSH All Active Problems (Updated 01/13/23 @ 08:43 by Jonas Patel CRNA) Status post laparoscopic assisted vaginal hysterectomy (Acute) 01/13/2023 Difficult intravenous access (Acute) Type 2 diabetes mellitus (Chronic) History of thyroid cancer (Chronic ~2013) Papillary thyroid CA 2014 s/p thyroidectomy, parathyroidectomy and DA SILVA ablation. Goal TSH 0.5-2 Essential hypertension (Chronic) Abnormal uterine bleeding (Chronic) Hyperlipidemia (Chronic) Major depressive disorder (Chronic) Thickened endometrium (Acute) Obesity (Chronic) Carpal tunnel syndrome, bilateral (Acute) Medical History COVID-19 (~09/17/21) Papillary thyroid carcinoma (~2013) S/p thyroidectomy, parathyroidectomy Prediabetes Surgical History H/O total thyroidectomy (~2013) With parathyroidectomy as well S/P breast augmentation Status post section (12/11/13) Family History Mother Essential hypertension Obesity Depression Father Alcohol abuse Grandfather , 75 Prostate cancer Grandfather Neoplasm PROSTATE? Grandmother Essential hypertension Hypothyroid Grandmother Diabetes Myocardial infarction Essential hypertension Heart disease Social History Smoking/Tobacco Use Status: Never Second Hand Exposure: Yes Smoking risk assessment performed?: Yes Alcohol Intake: current Alcohol Intake frequency: a few times a month Alcohol type: beer and wine Drug use: Rarely Substance use type: marijuana Caregiver/Support person: No Household members: significant other and children Housing: house Communication Needs: None Do you need help understanding health information?: Never Pets and animals: Yes Pets and animals: dog(s) and horse(s) Sexually active: Yes Do you think of yourself as: straight/heterosexual Current gender identity: female What is your relationship status?: living with partner How often do you talk on the phone with friends or family?: three or more times per week How often do you get together with friends or relatives?: once per week Do you belong to any clubs or organized social groups?: yes Panel score (0-1 are the most socially isolated patients): 3 What type of physical activity do you participate in: bicycling Duration: 15-30 minutes/day Frequency: 1-2 times per week Rosa/Mosque: No preference Special rosa needs: No Seatbelt use: always Helmet use: Yes Helmet use: always Drive intox or 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
--- NOTE | 2023-01-14 09:36 | PDOC.CMDIS ---
Date of service: 01/14/23 Time of Service: 09:36 LACE Index Scoring Tool Questions: Length of Stay (in days): 1 Was the patient admitted via the E.D.?: No Comorbidities: Any Tumor (HX Thyroid Cancer) E.D. Visits: 0 Answers: Total Score: 3 Risk of Readmission: Low Risk Care Management Discharge Plan Reason for Hospitalization: S/P LAV Discharge Plan: Nell is discharged home via private vehicle with family. She will follow up with community providers and discharge plan of care as prescribed. Hospital follow up with Dr. Gilbert at [facility] will be on 01/27/23, as scheduled. No services are ordered. Patient/Family Education Needs: Review discharge instructions, limitations and plan to follow up with community providers. Discuss ask me three.
[2023-01-14] MEDS: Bacitracin 1 PACKET TP (10:40)
== END 2023-01-14 10:54 | disposition home or self-care (01) | DRG 742 ==
LOC: PDS 07:00 → MS 15:13
PROVIDERS: Admitting Provider Obstetrics & Gynecology; PCP Nurse Practitioner Family; Visit Provider Obstetrics & Gynecology
PROC: 0UT9FZZ Resection of Uterus, Via Natural or Artificial Opening With Percutaneous Endoscopic Assistance (ICD-10-PCS; CPT 58554; principal; 2023-01-13 09:15)
DX: D25.1 Intramural leiomyoma of uterus (principal); Z68.41 Body mass index [BMI] 40.0-44.9, adult; N83.01 Follicular cyst of right ovary; N73.6 Female pelvic peritoneal adhesions (postinfective); D20.1 Benign neoplasm of soft tissue of peritoneum; I10 Essential (primary) hypertension; E11.9 Type 2 diabetes mellitus without complications; Z79.84 Long term (current) use of oral hypoglycemic drugs; E89.0 Postprocedural hypothyroidism; Z85.850 Personal history of malignant neoplasm of thyroid; F32.9 Major depressive disorder, single episode, unspecified; E78.5 Hyperlipidemia, unspecified; E66.9 Obesity, unspecified; G56.03 Carpal tunnel syndrome, bilateral upper limbs; E89.2 Postprocedural hypoparathyroidism
CPT/HCPCS: 58554; 52000; 36415; 76942; 85027; 88307; J0690; J1100; J1885; J2250; J2405; J3010

== ENCOUNTER → 2023-05-05 01:48 | Outpatient (CLI) | payer OTHER, SELFPAY ==
--- NOTE | 2023-05-05 07:45 | DI.MAMMO_ITS ---
Exam(s) MAMMO SCREENING EXAM: MAMMO SCREENING CLINICAL HISTORY: screening, z12.39 TECHNIQUE: Bilateral full field digital CC and MLO mammographic images were obtained with 3D tomosyn thesis and utilizing computer aided detection (CAD). COMPARISON: Available for comparison. FINDINGS: Masses/Architectural Distortion: There are few stable well-circumscribed nodules in both breasts. No new nodules or areas of architectural distortion are seen. Microcalcifications: No suspicious pleomorphic-type are seen. Skin Thickening/Nipple Retraction: None. IMPRESSION: 1. No significant interval change with no specific features of malignancy noted. 2. Unless there is more urgent need, screening mammography is recommended, as per [employer] guidelines. BI-RADS Category 2 - Benign Findings Breast Density - Category B - Scattered areas of fibroglandular density Breast density category C or D implies that the patient has dense breast tissue. Dense breast tissue is very common and is not abnormal but dense breast tissue can make it harder to find cancer on a ma mmogram. Also, dense breast tissue may increase their breast cancer risk. This information about the result of the mammogram report was provided to the patient to raise their awareness. Use this report when you speak with the patient about their risks for breast cancer, which includes their family hist ory. At that time, you may recommend for more screening tests (Ultrasound or MRI) as they might be us eful based on their risk. A negative radiographic report should not delay biopsy if a dominant or clinically suspicious mass is present. Up to ten percent of cancers are not identified on mammography. A negative report may reinforce clinical impression. Adenosis and dense breasts may obscure an underlying neoplasm. False positive reports average 6 to 10%. Patient will receive a letter notifying them of these results.
== END ==
PROVIDERS: PCP Nurse Practitioner Family; Visit Provider Nurse Practitioner Family
DX: Z12.31 Encounter for screening mammogram for malignant neoplasm of breast (principal)
CPT/HCPCS: 77063; 77067

== ENCOUNTER 2023-06-03 15:59 | Outpatient (REF) | payer OTHER, SELFPAY ==
[2023-06-03 21:02] LABS: HCT 34.8 % (36.0-46.0); HGB 11.8 g/dL (11.2-15.7); MCH 27.3 pg (27.0-33.0); MCHC 33.9 % (32.0-36.0); MCV 80 fL (80-95); MPV 9.4 fL (8.0-11.0); Platelet Count 286 10^3/uL (130-400); RBC 4.33 10^6/uL (3.93-5.22); RDW 13.7 % (11.7-14.6); WBC 7.74 10^3/uL (4.4-10.8)
[2023-06-03 21:25] LABS: Calculated LDL 99 mg/dL (<100); Cholesterol 163 mg/dL (<200); HDL Cholesterol 35 mg/dL (40-60); TSH (W/Ref FT4) 0.17 uIU/mL (0.36-3.74); Triglyceride 145 mg/dL (<150)
[2023-06-03 21:42] LABS: FREE T4 1.71 ng/dL (0.76-1.46)
== END 2023-06-03 16:00 | disposition home or self-care (01) ==
LOC: LBN 15:59
PROVIDERS: PCP Nurse Practitioner Family; Visit Provider Nurse Practitioner Family
DX: Z85.850 Personal history of malignant neoplasm of thyroid (principal); Z00.00 Encounter for general adult medical examination without abnormal findings
CPT/HCPCS: 80061; 85027; 84439; 84443

== ENCOUNTER 2023-09-09 05:01 | Outpatient (CLI) | payer OTHER, SELFPAY ==
[2023-09-09 12:45] LABS: Hemoglobin A1C 5.7 % (<5.7)
[2023-09-09 12:46] LABS: Anion Gap 5.8 mmol/L (3-11); BUN 8 mg/dL (7-18); CO2 30.2 mmol/L (21.0-32.0); CREATININE 0.9 mg/dL (0.55-1.02); Calcium 8.8 mg/dL (8.5-10.1); Chloride 103 mmol/L (98-107); Estimated GFR 81.86 (mL/min/1.73m2); Glucose 121 mg/dL (74-106); Potassium 4.1 mmol/L (3.5-5.1); Sodium 139 mmol/L (136-145); TSH (W/Ref FT4) 0.89 uIU/mL (0.36-3.74)
== END 2023-09-09 05:02 | disposition home or self-care (01) ==
LOC: LOS 05:02
PROVIDERS: PCP Nurse Practitioner Family; Visit Provider Nurse Practitioner Family
DX: E11.9 Type 2 diabetes mellitus without complications (principal); Z85.850 Personal history of malignant neoplasm of thyroid
CPT/HCPCS: 36415; 80048; 83036; 84443

== ENCOUNTER 2024-05-16 01:33 | Outpatient (CLI) | payer OTHER, SELFPAY ==
--- NOTE | 2024-05-16 13:00 | DI.MAMMO_ITS ---
Exam(s) MAMMO SCREENING EXAM: MAMMO SCREENING CLINICAL HISTORY: screening,z12.39 TECHNIQUE: Bilateral full field digital CC and MLO mammographic images were obtained with 3D tomosyn thesis and utilizing computer aided detection (CAD). COMPARISON: Available for comparison. FINDINGS: Masses/Architectural Distortion: Stable nodules are seen in the right breast. No new nodules are see n. No areas of architectural distortion are present. Microcalcifications: No suspicious pleomorphic-type are seen. Skin Thickening/Nipple Retraction: None. IMPRESSION: 1. No significant interval change with no specific features of malignancy noted. 2. Unless there is more urgent need, screening mammography is recommended, as per [employer] guidelines. BI-RADS Category 2 - Benign Findings Breast Density - Category B - Scattered areas of fibroglandular density Breast density category C or D implies that the patient has dense breast tissue. Dense breast tissue is very common and is not abnormal but dense breast tissue can make it harder to find cancer on a ma mmogram. Also, dense breast tissue may increase their breast cancer risk. This information about the result of the mammogram report was provided to the patient to raise their awareness. Use this report when you speak with the patient about their risks for breast cancer, which includes their family hist ory. At that time, you may recommend for more screening tests (Ultrasound or MRI) as they might be us eful based on their risk. A negative radiographic report should not delay biopsy if a dominant or clinically suspicious mass is present. Up to ten percent of cancers are not identified on mammography. A negative report may reinforce clinical impression. Adenosis and dense breasts may obscure an underlying neoplasm. False positive reports average 6 to 10%. Patient will receive a letter notifying them of these results.
== END 2024-05-16 01:53 ==
LOC: DI 01:33
PROVIDERS: PCP Nurse Practitioner Family; Visit Provider Nurse Practitioner Family
DX: Z12.31 Encounter for screening mammogram for malignant neoplasm of breast (principal)
CPT/HCPCS: 77063; 77067

== ENCOUNTER 2024-12-19 00:29 | Outpatient (CLI) | payer OTHER, SELFPAY ==
[2024-12-19 12:53] LABS: HCT 39.1 % (36.0-46.0); HGB 13.1 g/dL (11.2-15.7); MCH 28.8 pg (27.0-33.0); MCHC 33.5 % (32.0-36.0); MCV 86 fL (80-95); MPV 9.5 fL (8.0-11.0); Platelet Count 293 10^3/uL (130-400); RBC 4.55 10^6/uL (3.93-5.22); RDW 13.2 % (11.7-14.6); RDW-SD 41.1 fL; WBC 6.66 10^3/uL (4.4-10.8)
[2024-12-19 13:15] LABS: Hemoglobin A1C 5.2 % (<5.7)
[2024-12-19 13:17] LABS: ALT 28 U/L (14-59); AST 17 U/L (15-37); Albumin 3.9 g/dL (3.4-5.0); Alkaline Phosphatase 56 U/L (46-116); Anion Gap 9.5 mmol/L (3-11); BUN 10 mg/dL (7-18); Bilirubin, Total 0.4 mg/dL (0.2-1.0); CO2 27.5 mmol/L (21.0-32.0); CREATININE 0.8 mg/dL (0.55-1.02); Calcium 8.7 mg/dL (8.5-10.1); Chloride 103 mmol/L (98-107); Estimated GFR 93.12 (mL/min/1.73m2); FREE T4 1.44 ng/dL (0.76-1.46); Glucose 88 mg/dL (74-106); Potassium 4.1 mmol/L (3.5-5.1); Sodium 140 mmol/L (136-145); TSH 0.54 uIU/mL (0.36-3.74); Total Protein 7.5 g/dL (6.4-8.2)
[2024-12-19 19:24] LABS: HBs Antibody, Quant <3.1 mIU/mL (See Note); Hep B Surface Ab Negative (See Note); Hepatitis B Core Antibody Negative (Negative); Hepatitis B Surface Antigen Negative (Negative)
[2024-12-19 19:27] LABS: HIV-1/2 Ag & Ab Screen Negative (Negative)
[2024-12-22 13:24] LABS: Thyroglobulin Antibody <1.8 IU/mL (<1.8); Thyroglobulin Tumor Marker <0.1 ng/mL (< or = 33)
== END 2024-12-19 00:30 | disposition home or self-care (01) ==
LOC: LOS 00:29
PROVIDERS: PCP Nurse Practitioner Family; Referring Provider Nurse Practitioner Family; Visit Provider Nurse Practitioner Family
DX: Z00.00 Encounter for general adult medical examination without abnormal findings (principal); Z85.850 Personal history of malignant neoplasm of thyroid; Z11.4 Encounter for screening for human immunodeficiency virus [HIV]; C73 Malignant neoplasm of thyroid gland; Z11.59 Encounter for screening for other viral diseases
CPT/HCPCS: 36415; 80053; 85027; 86704; 86706; 87340; 87389; 83036; 84432; 84439; 84443; 86800

== ENCOUNTER 2025-06-08 04:19 | Outpatient (CLI) | payer OTHER, SELFPAY ==
--- NOTE | 2025-06-08 08:45 | DI.MAMMO_ITS ---
Exam(s) MAMMO SCREENING EXAM: MAMMO SCREENING CLINICAL HISTORY: screening,z12.39 TECHNIQUE: Mammograms were interpreted according to the usual protocol including computer analysis with CAD system, tomosynthesis and C-view imaging. COMPARISON: 2020 through 2023 FINDINGS: The breasts are composed of scattered fibroglandular densities, Breast Density category B. No suspicious masses or suspicious microcalcifications are seen. No skin thickening or abnormal axillary lymph nodes are seen. There has been no significant change from prior exams. IMPRESSION: BI-RADS Category 1, Negative mammogram Yearly screening mammography is recommended. Breast Density - Category B - There are scattered areas of fibroglandular density. Breast density Category C or D implies that the patient has dense breast tissue. Dense breast tissue can make it harder to find cancer on a mammogram. Dense breast tissue is also associated with an increased risk of breast cancer. This information about the result of the mammogram report was provided to the patient to raise their awareness. Use this report when you speak with the patient about their risks for breast cancer, which includes their family history. At that time, you may recommend additional screening tests (Ultrasound or MRI) as these tests may add significant information. A negative radiographic report should not delay biopsy if a dominant or clinically suspicious mass is present. Up to ten percent of cancers are not identified on mammography. A negative report may reinforce clinical impression. Adenosis and dense breasts may obscure an underlying neoplasm. False positive reports average 6 to 10%. Patient will receive a letter notifying them of these results.
== END 2025-06-08 04:39 ==
PROVIDERS: PCP Nurse Practitioner Family; Visit Provider Nurse Practitioner Family
DX: Z12.31 Encounter for screening mammogram for malignant neoplasm of breast (principal); R92.323 Mammographic fibroglandular density, bilateral breasts
CPT/HCPCS: 77063; 77067

== ENCOUNTER 2025-07-04 14:08 | Outpatient (REF) | payer OTHER, SELFPAY | END 2025-07-04 14:09 | disposition home or self-care (01) | LOC: LBN 14:08 | PROVIDERS: PCP Nurse Practitioner Family; Visit Provider Nurse Practitioner Family | DX: N76.0 Acute vaginitis (principal) | CPT/HCPCS: 87480; 87510; 87660 ==